=== PATIENT | male | born 1960 ===

== ENCOUNTER 2018-12-15 07:22 | Day surgery (SDC) | payer OTHER ==
[~2018-12-15] VITALS: Ht 172.7 cm; Wt 95.3 kg
[2018-12-15] VITALS (9 sets, daily range): BP systolic 129–154; BP diastolic 66–98
[~2018-12-15 07:22] MED LIST: ceFAZolin 1gm IVPB IVPB ONE; celeBREX 200mg Cap **SURGERY PATIENTS ONLY ORAL ONE; oxyCONTIN 20mg tab ORAL ONE
--- NOTE | 2018-12-15 07:41 | Pre-Procedure Note/Attestation ---
Pre-Procedure Note/Attestation Complete Prior to Procedure Planned Procedure: left Procedure Narrative: shoulder arthroscopy, rc repair, sad Indications for Procedure Pre-Operative Diagnosis: left shoulder rct, impingement Attestation I attest that I discussed the nature of the procedure; its benefits; risks and complications; and alternatives (and the risks and benefits of such alternatives ), prior to the procedure, with the patient (or the patient's legal sales representative business courses). I attest that, if there was a reasonable possibility of needing a blood transfusion, the patient (or the patient's legal sales representative business courses) was given the [facility] standardized written summary, pursuant to the [place] Blood Safety Act ([place] Health and Safety Code # 1645, as amended). I attest that I re-evaluated the patient just prior to the surgery and that there has been no change in the patient's H&P, except as documented below: Dao Zamorano MD December 15, 2018 07:41
--- NOTE | 2018-12-15 07:41 | Operative Note - PDOC ---
Operative Note Operative Note Pre-op Diagnosis: left shoulder rct, impingement Procedure: seee op report Operative Findings: consistent w/pre-op dx studies Specimen: none Complications: none Condition: stable Estimated Blood Loss: none Implant(s) used?: Yes Dao Zamorano MD December 15, 2018 07:41
[2018-12-15] MEDS ORDERED: Tylenol #3 tab (300mg/30mg) ORAL PRN (07:45)
[2018-12-15] MEDS ORDERED: HYDROmorphone 1mg/ml Carpuject SUBQ PRN (07:45)
[2018-12-15] MEDS ORDERED: HYDROcodone/Acetamin 5/325 tab ORAL PRN ×2 (07:45→10:45)
[2018-12-15] MEDS ORDERED: D5 1/2NS 1,000 ML IV SCH (07:45)
[2018-12-15] MEDS ORDERED: ADVIL200 M2 ORAL (07:58)
[2018-12-15] MEDS ORDERED: MUSCLE RELAXANT PO (07:58)
[2018-12-15] MEDS ORDERED: OMEPRAZOLE20 M2 ORAL (07:58)
[2018-12-15] MEDS ORDERED: celeBREX 200mg Cap **SURGERY PATIENTS ONLY ORAL ONE (08:12)
[2018-12-15] MEDS ORDERED: oxyCONTIN 20mg tab ORAL ONE (08:12)
[2018-12-15] MEDS ORDERED: Kenalog-40 1ml Vial ONE (10:32)
[2018-12-15] MEDS ORDERED: Ketorolac 30mg Inj ONE (10:33)
[2018-12-15] MEDS ORDERED: Duramorph PF 5mg/10ml amp ONE (10:33)
[2018-12-15] MEDS ORDERED: Bupivacaine 0.25% Inj 30ml INJ ONE (10:33)
[2018-12-15] MEDS ORDERED: EPINEPHrine 1mg/1ml Amp ONE (10:34)
[2018-12-15] MEDS ORDERED: Ropivacaine 5mg/ml Vial 30ml INJ ONE (10:39)
[2018-12-15] MEDS ORDERED: Sodium Chloride 10ml vial INJ ONE (10:40)
[2018-12-15] MEDS ORDERED: Lidocaine 1% MPF 10mg/ml 5ml ONE (10:40)
[2018-12-15] MEDS ORDERED: LR 1000ml 1,000 ML IVLG SCH (10:42)
[2018-12-15] MEDS ORDERED: Dexamethasone 4mg/ml vial ONE (10:43)
[2018-12-15] MEDS ORDERED: Atropine Sulfate 0.4mg/ml inj IVP PRN (10:45)
[2018-12-15] MEDS ORDERED: Labetalol 5mg/ml 20ml vial IV PRN (10:45)
[2018-12-15] MEDS ORDERED: Midazolam 2mg/2ml Inj IVP PRN (10:45)
[2018-12-15] MEDS ORDERED: fentaNYL 100 mcg/2 mL IV PRN (10:45)
[2018-12-15] MEDS ORDERED: DiphenhydrAMINE 50mg/ml Inj IVP PRN (10:45)
[2018-12-15] MEDS ORDERED: LORazepam Inj 2mg/ml 1ml IV PRN (10:45)
[2018-12-15] MEDS ORDERED: HYDROcodone/Acetamin 7.5/325 tab ORAL PRN (10:45)
[2018-12-15] MEDS ORDERED: oxyCODONE HCL/Acetaminophen 5/325mg ORAL PRN (10:45)
[2018-12-15] MEDS ORDERED: Meperidine 50mg/ml Inj(FOR RIGORS ONLY) IVP PRN (10:45)
[2018-12-15] MEDS ORDERED: Metoclopramide 10mg/2ml Inj IVP PRN (10:45)
[2018-12-15] MEDS ORDERED: Hydromorphone 0.5mg/0.5ml inj IVP PRN (10:45)
[2018-12-15] MEDS ORDERED: Ketorolac 30mg Inj IV PRN ×2 (10:45)
--- NOTE | 2018-12-15 10:56 | Anethesia Preoperative Eval ---
Anesthesia Pre-op PMH/ROS General Date of Evaluation: December 15, 2018 Time of Evaluation: 10:46 Anesthesiologist: Sy ASA Score: ASA 3 Mallampati Score Class I : Soft palate, uvula, fauces, pillars visible Class II: Soft palate, uvula, fauces visible Class III: Soft palate, base of uvula visible Class IV: Only hard plate visible Mallampati Classification: Class II Surgeon: Jaun Diagnosis: L Shoulder Pain Surgical Procedure: L Shoulder Arthroscopy Anesthesia History: none Family History: no anesthesia problems Allergies: Coded Allergies: No Known Allergies (Unverified , 12/15/18) Medications: see eMAR Patient NPO?: Yes Past Medical History Cardiovascular: Reports: HTN Gastrointestinal/Genitourinary: Reports: GERD Other: obesity PSxH Narrative: R Shoulder Sx Anesthesia Pre-op Phys. Exam Physician Exam Last Vital Signs Date Time Temp Pulse Resp B/P (MAP) Pulse Ox O2 Delivery O2 Flow Rate FiO2 12/15/18 07:59 Room Air 12/15/18 07:55 97.1 66 18 141/98 96 Constitutional: NAD Neurologic: CN 2-12 intact Cardiovascular: RRR Respiratory: CTA Gastrointestinal: S/NT/ND Airway Exam Mallampati Score: Class II MO: full ROM: limited Teeth: missing Anesthesia Pre-op A/P Risk Assessment & Plan Assessment: ASA 3 Plan: GA, SED Status Change Before Surgery: No Pre-Antibiotics Dru Grams Ancef IV Given Within 1 Hr of Incision: Yes Time Given: 11:11 Javier Dan MD December 15, 2018 10:56
[2018-12-15] MEDS ORDERED: LR 1000ml ONE (11:00)
[2018-12-15] MEDS ORDERED: Propofol 200mg/20ml IV ONE (11:00)
--- NOTE | 2018-12-15 11:21 | Immediate Post-Op Evaluation ---
Immediate Post-Op Evalulation Immediate Post-Op Evalulation Procedure: L Shoulder Arthroscopy Date of Evaluation: December 15, 2018 Time of Evaluation: 13:03 IV Fluids: 700 LR Blood Products: 0 Estimated Blood Loss: 11 Urinary Output: 0 Blood Pressure Systolic: 147 Blood Pressure Diastolic: 92 Pulse Rate: 67 Respiratory Rate: 16 O2 Sat by Pulse Oximetry: 99 Temperature (Fahrenheit): 97.3 Pain Score (1-10): 2 Nausea: No Vomiting: No Complications 0 Patient Status: awake, reacts, patent, extubated, none Hydration Status: adequate Dru Grams Ancef IV Given Within 1 Hr of Incision: Yes Time Given: 11:11 Javier Dan MD December 15, 2018 11:21
--- NOTE | 2018-12-15 11:22 | 48 Hour Post Anesthesia Eval ---
Post Anesthesia Evaluation Procedure: L Shoulder Arthroscopy Date of Evaluation: December 15, 2018 Time of Evaluation: 15:12 Blood Pressure Systolic: 156 0: 92 Pulse Rate: 72 Respiratory Rate: 18 Temperature (Fahrenheit): 98.2 O2 Sat by Pulse Oximetry: 96 Airway: patent Nausea: No Vomiting: No Pain Intensity: 2 Hydration Status: adequate Cardiopulmonary Status: Stable Mental Status/LOC: patient returned to baseline Follow-up Care/Observations: 0 Post-Anesthesia Complications: 0 Follow-up care needed: ready to discharge Javier Dan MD December 15, 2018 11:22
[2018-12-15] MEDS ORDERED: NS Irrig 4000ml IRRIG ONE ×3 (11:43→11:54)
--- NOTE | 2018-12-16 00:31 | Operative Note - Dictated ---
DATE OF OPERATION: 12/15/2018 PREOPERATIVE DIAGNOSIS: Left shoulder rotator cuff tear. POSTOPERATIVE DIAGNOSIS: 1. Left shoulder full-thickness rotator cuff tear. 2. Left shoulder partial biceps tendon tear. 3. Impingement syndrome. PROCEDURE: 1. Left shoulder arthroscopy and extensive intraarticular debridement. 2. Left shoulder arthroscopic rotator cuff repair. 3. Left shoulder subacromial decompression bursectomy. SURGEON: Dao Zamorano M.D. ANESTHESIA: Interscalene with general. INDICATION FOR PROCEDURE: The patient is a pleasant 58-year-old gentleman, who has had left shoulder pain and evidence of full-thickness rotator cuff tear. He elected to undergo left shoulder arthroscopy, rotator cuff repair. Risks, limitations, expectations, and complications of the procedure were discussed in detail. All questions were addressed. DESCRIPTION OF PROCEDURE: After informed consent was obtained, the patient was brought to the operating room. The patient was placed on interscalene general anesthesia. The patient was then carefully placed in the beach chair position. Left shoulder was prepped and draped in a sterile manner. Time-out was performed. Inferolateral stab incision was then made. Trocar was introduced into the glenohumeral joint. Some tearing of the biceps tendon. The anterior labrum appeared to be intact along with the subscap. No intra-articular loose bodies. There was full-thickness rotator cuff tear. Shaver was then placed through the rotator cuff was performed. Once that was done, the camera was placed in the subacromial space. Undersurface of the acromion was identified. Acromioplasty was started from lateral to medial and completed from posterior to anterior. Once that was done, the rotator cuff was stitched back to the margin of the anchors. Bursectomy was completed. The patient was awoken and taken to recovery room with stable vital signs. ESTIMATED BLOOD LOSS: Minimal. COMPLICATIONS: None. SPECIMENS: None. IMPLANTS: Two [employer]omet anchors. Dao Zamorano M.D. DR: [place] JOB#: [id number] CC:
== END 2018-12-15 15:50 | disposition home or self-care (01) ==
LOC: SUR 07:22
DX: M75.122 Complete rotator cuff tear or rupture of left shoulder, not specified as traumatic (principal); S46.212A Strain of muscle, fascia and tendon of other parts of biceps, left arm, initial encounter; M75.42 Impingement syndrome of left shoulder; I10 Essential (primary) hypertension; K21.9 Gastro-esophageal reflux disease without esophagitis; X58.XXXA Exposure to other specified factors, initial encounter; Y92.9 Unspecified place or not applicable
CPT/HCPCS: 29823; 29826; 29827; C1713; J0171; J0690; J1100; J2250; J2405; J2704; J2765; J2795; 94003; 94150